=== PATIENT | female | born 2000 ===

== ENCOUNTER 2020-03-12 19:11 | Emergency (ER) | payer BC, OTHER ==
[2020-03-13 11:48] LABS: SARS-CoV-2 MS2 Positive; SARS-CoV-2 N Gene Negative; SARS-CoV-2 S Gene Negative; SARS-CoV-2 orf1ab Negative
== END 2020-03-12 19:50 | disposition home or self-care (01) ==
LOC: ERS 19:11
DX: Z20.828 Contact with and (suspected) exposure to other viral communicable diseases (principal); F17.290 Nicotine dependence, other tobacco product, uncomplicated
CPT/HCPCS: 87635; 99283; U0003